=== PATIENT | male | born 1960 | race Caucasian/White ===

== ENCOUNTER → 2020-04-07 | Outpatient (CLI) | payer OTHER ==
[~2020-04-07] MED LIST: FINA5TAB4 PO
[2020-04-11 09:00] VITALS: BP 135/88
== END ==
LOC: EDSTATUS 09:09 → LAB 14:15
PROVIDERS: ATTEND Nurse Anesthetist, Certified Registered
DX: Z01.812 Encounter for preprocedural laboratory examination (principal); Z12.11 Encounter for screening for malignant neoplasm of colon; Z20.828 Contact with and (suspected) exposure to other viral communicable diseases
CPT/HCPCS: C9803; U0003

== ENCOUNTER → 2020-04-11 | Day surgery (SDC) | payer OTHER ==
[~2020-04-11] MED LIST changes: +IPRATRPIUM/ALBUTEROL 0.5/2.5MG 3 ML NEBU. NEB PRN; +IV RINGERS SOLUTION,LACTATED 1,000 ML IV SCH; +MIDAZOLAM HCL PF 2 MG/2 ML VIAL. IV ONE; +ONDANSETRON PF 4 MG/2 ML VIAL. IV PRN; +PROPOFOL 10,000 MCG/ML (20ML) VIAL IV ONE
[2020-04-11 09:00] VITALS: BP 135/88
--- NOTE | 2020-04-12 18:13 | PATHOLOGY ---
[facility] [place] Accession Number: [id number] . 01 Material submitted: . PART A: colon - ASCENDING COLON POLYP - HOT SNARE. Modifiers: descending PART B: colon - SIGMOID COLON POLYP. Modifiers: sigmoid . 02 Diagnosis: A. Colon biopsies, ascending colon polyp hot snare: - Tubular adenoma. . B. Colon biopsy, sigmoid colon polyp: - Hyperplastic polyp. (JPM:rodolfo; 04/12/2020) QMS 04/12/2020 0926 Local . 02 Comment: There is no high grade dysplasia or evidence of malignancy. (JPM:rodolfo; 04/12/2020) . 02 Electronically signed: . Fabian Jones MD, Pathologist NPI- [id number] . 01 Gross description: . A. The specimen is received in formalin, labeled "Predhenry, Donnell, ascending colon polyp" and consists of 3 fragments of pink-bob tissue measuring between 0.3 x 0.2 cm and 0.5 x 0.4 cm which are entirely submitted in A1. . B. The specimen is received in formalin, labeled "Predmore, Donnell, sigmoid colon polyp" and consists of a fragment of pink-bob tissue measuring 0.3 x 0.3 cm which is entirely submitted in B1. (SDY; 04/11/2020) SYU/SYU 04/12/2020 1350 Local . 02 Pathologist provided ICD-10: D12.2, K63.5 . 02 CPT . 289140, 406117 Specimen Comment: A courtesy copy of this report has been sent to [phone], [phone] Specimen Comment: [id number] Specimen Comment: Report sent to / DR BARRAGAN Performed at: [address] [place] [address] [address] [facility] [address], [place], [place] [id number] MD Ulysses Ponce MD Phone: [phone] Performed at: [address] [id number] MD Fabian Jones MD Phone: [phone]
== END ==
LOC: SURG 06:53
PROVIDERS: ATTEND Internal Medicine Gastroenterology
DX: Z12.11 Encounter for screening for malignant neoplasm of colon (principal); D12.2 Benign neoplasm of ascending colon; D12.5 Benign neoplasm of sigmoid colon; Z86.010 Personal history of colon polyps; Z72.89 Other problems related to lifestyle
CPT/HCPCS: 45380; 45385; J2704; J7120